=== PATIENT | male | born 1940 | race Caucasian/White ===

== ENCOUNTER 2016-10-19 09:00 | Outpatient (CLI) | payer MEDICARE, OTHER | END 2016-10-19 09:01 | disposition home or self-care (01) | DX: D48.5 Neoplasm of uncertain behavior of skin (principal); E78.5 Hyperlipidemia, unspecified ==

== ENCOUNTER 2017-11-22 08:00 | Outpatient (CLI) | payer MEDICARE, OTHER ==
[2017-11-22 12:53] LABS: BASOPHILS % (AUTO) 0.4 %; EOSINOPHILS # (AUTO) 0.1 10^3/uL (0.0-0.7); EOSINOPHILS % (AUTO) 0.7 %; HGB - HEMOGLOBIN 14.4 g/dL (14.0-18.0); LYMPHOCYTES # (AUTO) 1.2 10^3/uL (1.5-3.5); MEAN CORPUSCULAR HEMOGLOBIN 29.7 pg (27.0-31.0); MEAN CORPUSCULAR HGB CONC 34.5 g/dL (32.0-36.0); MEAN CORPUSCULAR VOLUME 86.2 fL (80.0-94.0); MONOCYTES # (AUTO) 0.6 10^3/uL (0.0-1.0); MONOCYTES % (AUTO) 8.5 %; NEUTROPHILS # (AUTO) 5.4 10^3/uL (1.5-6.6); NEUTROPHILS % (AUTO) 73.4 %; PLT - PLATELET COUNT 224 10^3/uL (130-450); RED BLOOD COUNT 4.84 10^6/uL (4.70-6.10); RED CELL DISTRIBUTION WIDTH 13.1 % (12.0-15.0); WHITE BLOOD COUNT 7.3 x10^3/uL (4.8-10.8)
[2017-11-22 13:19] LABS: ALBUMIN 4.3 g/dL (3.2-5.5); ALBUMIN/GLOBULIN RATIO 1.4 (1.0-2.2); ALKALINE PHOSPHATASE 53 IU/L (42-121); ALT ALANINE AMINOTRANSFERASE 23 IU/L (10-60); AST ASPARTATE AMINOTRANSFERASE 26 IU/L (10-42); BILIRUBIN,TOTAL 0.7 mg/dL (0.2-1.0); BUN - BLOOD UREA NITROGEN 22 mg/dL (6-20); CARBON DIOXIDE - CO2 26 mmol/L (21-32); CHLORIDE 104 mmol/L (101-111); CHOL/HDL RATIO 3.5 (<5.0); CHOLESTEROL 199 mg/dL; CREATININE 0.8 mg/dL (0.6-1.2); GFR - MDRD 94 (>89); GLUCOSE 111 mg/dL (70-100); HDL CHOLESTEROL 57 mg/dL; LDL CHOLESTEROL,CALCULATED 103 mg/dL; LDL/HDL RATIO 1.8 (<3.6); SODIUM 135 mmol/L (135-145); TOTAL PROTEIN 7.3 g/dL (6.7-8.2); VLDL CHOLESTEROL 39 mg/dL
== END 2017-11-22 08:01 | disposition home or self-care (01) ==
LOC: LAB.WCP 08:00
PROVIDERS: ATTEND Family Medicine
DX: I10 Essential (primary) hypertension (principal); E78.5 Hyperlipidemia, unspecified
CPT/HCPCS: 36415; 80053; 80061; 83721; 85025

== ENCOUNTER 2018-12-05 08:00 | Outpatient (CLI) | payer MEDICARE, OTHER ==
[2018-12-05 13:01] LABS: BASOPHILS % (AUTO) 0.7 %; EOSINOPHILS # (AUTO) 0.1 10^3/uL (0.0-0.7); EOSINOPHILS % (AUTO) 0.9 %; HGB - HEMOGLOBIN 14.3 g/dL (14.0-18.0); LYMPHOCYTES # (AUTO) 1.2 10^3/uL (1.5-3.5); LYMPHOCYTES % (AUTO) 19.4 %; MEAN CORPUSCULAR HEMOGLOBIN 29.4 pg (27.0-31.0); MEAN CORPUSCULAR HGB CONC 34.1 g/dL (32.0-36.0); MEAN CORPUSCULAR VOLUME 86.2 fL (80.0-94.0); MEAN PLATELET VOLUME 7.9 fL (7.4-11.4); MONOCYTES # (AUTO) 0.5 10^3/uL (0.0-1.0); MONOCYTES % (AUTO) 8.7 %; NEUTROPHILS # (AUTO) 4.4 10^3/uL (1.5-6.6); NEUTROPHILS % (AUTO) 70.3 %; PLT - PLATELET COUNT 260 10^3/uL (130-450); RED BLOOD COUNT 4.85 10^6/uL (4.70-6.10); WHITE BLOOD COUNT 6.3 x10^3/uL (4.8-10.8)
[2018-12-05 13:28] LABS: ALBUMIN 4.2 g/dL (3.2-5.5); ALBUMIN/GLOBULIN RATIO 1.6 (1.0-2.2); ALKALINE PHOSPHATASE 59 IU/L (42-121); ALT ALANINE AMINOTRANSFERASE 21 IU/L (10-60); AST ASPARTATE AMINOTRANSFERASE 25 IU/L (10-42); BUN - BLOOD UREA NITROGEN 18 mg/dL (6-20); CALCIUM 9.7 mg/dL (8.5-10.3); CARBON DIOXIDE - CO2 24 mmol/L (21-32); CHLORIDE 103 mmol/L (101-111); CHOL/HDL RATIO 3.4 (<5.0); CHOLESTEROL 182 mg/dL; CREATININE 0.8 mg/dL (0.6-1.2); GFR - MDRD 93 (>89); GLUCOSE 110 mg/dL (70-100); HDL CHOLESTEROL 54 mg/dL; LDL CHOLESTEROL,CALCULATED 112 mg/dL; LDL/HDL RATIO 2.1 (<3.6); SODIUM 135 mmol/L (135-145); TOTAL PROTEIN 6.9 g/dL (6.7-8.2); VLDL CHOLESTEROL 16 mg/dL
== END 2018-12-05 23:59 | disposition home or self-care (01) ==
LOC: LAB.WCP 08:00
PROVIDERS: ATTEND Family Medicine
DX: N52.9 Male erectile dysfunction, unspecified (principal); I10 Essential (primary) hypertension; D12.6 Benign neoplasm of colon, unspecified; E78.5 Hyperlipidemia, unspecified; N40.1 Benign prostatic hyperplasia with lower urinary tract symptoms
CPT/HCPCS: 36415; 80053; 80061; 83721; 84443; 85025

== ENCOUNTER 2019-07-16 08:00 | Outpatient (CLI) | payer MEDICARE, OTHER ==
[2019-07-16 13:00] LABS: BASOPHILS % (AUTO) 0.7 %; EOSINOPHILS # (AUTO) 0.1 10^3/uL (0.0-0.7); EOSINOPHILS % (AUTO) 0.8 %; HGB - HEMOGLOBIN 14.9 g/dL (14.0-18.0); LYMPHOCYTES # (AUTO) 1.3 10^3/uL (1.5-3.5); LYMPHOCYTES % (AUTO) 21.2 %; MEAN CORPUSCULAR HEMOGLOBIN 29.6 pg (27.0-31.0); MEAN CORPUSCULAR HGB CONC 32.9 g/dL (32.0-36.0); MEAN CORPUSCULAR VOLUME 90.1 fL (80.0-94.0); MEAN PLATELET VOLUME 9.9 fL (7.4-11.4); MONOCYTES # (AUTO) 0.6 10^3/uL (0.0-1.0); MONOCYTES % (AUTO) 9.8 %; NEUTROPHILS % (AUTO) 67.2 %; PLT - PLATELET COUNT 226 10^3/uL (130-450); RED BLOOD COUNT 5.03 10^6/uL (4.70-6.10); RED CELL DISTRIBUTION WIDTH 12.5 % (12.0-15.0); WHITE BLOOD COUNT 5.9 x10^3/uL (4.8-10.8)
[2019-07-16 13:25] LABS: ALBUMIN 4.6 g/dL (3.2-5.5); ALBUMIN/GLOBULIN RATIO 1.6 (1.0-2.2); BILIRUBIN,TOTAL 0.7 mg/dL (0.2-1.0); CALCIUM 10.1 mg/dL (8.5-10.3); CREATININE 0.9 mg/dL (0.6-1.2); TOTAL PROTEIN 7.4 g/dL (6.7-8.2)
== END 2019-07-16 23:59 | disposition home or self-care (01) ==
LOC: LAB.WCP 08:00
PROVIDERS: ATTEND Family Medicine
DX: R55 Syncope and collapse (principal)
CPT/HCPCS: 36415; 80053; 84443; 85025

== ENCOUNTER 2020-07-27 11:08 | Outpatient (CLI) | payer MEDICARE, OTHER ==
[2020-07-27 18:12] LABS: BASOPHILS % (AUTO) 0.6 %; EOSINOPHILS % (AUTO) 0.8 %; HGB - HEMOGLOBIN 15.2 g/dL (14.0-18.0); LYMPHOCYTES # (AUTO) 1.2 10^3/uL (1.5-3.5); LYMPHOCYTES % (AUTO) 21.8 %; MEAN CORPUSCULAR HEMOGLOBIN 29.6 pg (27.0-31.0); MEAN CORPUSCULAR HGB CONC 32.8 g/dL (32.0-36.0); MEAN CORPUSCULAR VOLUME 90.3 fL (80.0-94.0); MEAN PLATELET VOLUME 9.7 fL (7.4-11.4); MONOCYTES # (AUTO) 0.5 10^3/uL (0.0-1.0); MONOCYTES % (AUTO) 8.4 %; NEUTROPHILS # (AUTO) 3.6 10^3/uL (1.5-6.6); PLT - PLATELET COUNT 242 10^3/uL (130-450); RED BLOOD COUNT 5.14 10^6/uL (4.70-6.10); RED CELL DISTRIBUTION WIDTH 12.4 % (12.0-15.0); WHITE BLOOD COUNT 5.3 x10^3/uL (4.8-10.8)
[2020-07-27 18:38] LABS: ALBUMIN 4.6 g/dL (3.2-5.5); ALBUMIN/GLOBULIN RATIO 1.8 (1.0-2.2); BILIRUBIN,TOTAL 0.9 mg/dL (0.2-1.0); CALCIUM 10.6 mg/dL (8.5-10.3); CREATININE 0.9 mg/dL (0.6-1.2); TOTAL PROTEIN 7.1 g/dL (6.7-8.2)
[2020-07-27 19:04] LABS: CHOL/HDL RATIO 4.6 (<5.0); CHOLESTEROL 224 mg/dL; HDL CHOLESTEROL 49 mg/dL; LDL CHOLESTEROL,CALCULATED 135 mg/dL; LDL/HDL RATIO 2.8 (<3.6); VLDL CHOLESTEROL 40 mg/dL
== END 2020-07-27 23:59 | disposition home or self-care (01) ==
LOC: LAB.WCP 11:08
PROVIDERS: ATTEND Family Medicine
DX: I10 Essential (primary) hypertension (principal); K92.2 Gastrointestinal hemorrhage, unspecified; D64.9 Anemia, unspecified; E78.5 Hyperlipidemia, unspecified; R11.0 Nausea
CPT/HCPCS: 36415; 80053; 80061; 83721; 84443; 85025

== ENCOUNTER 2020-12-27 08:00 | Outpatient (CLI) | payer MEDICARE, OTHER ==
[2020-12-27 12:36] LABS: CHOL/HDL RATIO 3.5 (<5.0); CHOLESTEROL 198 mg/dL; HDL CHOLESTEROL 57 mg/dL; LDL CHOLESTEROL,CALCULATED 115 mg/dL; TRIGLYCERIDES 128 mg/dL; VLDL CHOLESTEROL 26 mg/dL
== END 2020-12-27 23:59 | disposition home or self-care (01) ==
LOC: LAB.WCP 08:00
PROVIDERS: ATTEND Internal Medicine
DX: E78.5 Hyperlipidemia, unspecified (principal)
CPT/HCPCS: 36415; 80061; 83721

== ENCOUNTER 2021-08-30 10:43 | Outpatient (CLI) | payer MEDICARE, OTHER ==
--- NOTE | 2021-08-30 16:16 | XRAY Report ---
PROCEDURE: Thoracic Spine 3 View INDICATIONS: THORACIC BACK PX TECHNIQUE: 3 views of the thoracic spine were acquired. COMPARISON: None. FINDINGS: Bones: There is leftward curvature of the thoracic spine with a Mendez angle 10 degrees. Multilevel deg enerative changes with anterior osteophytes are seen. No focal disc space narrowing. No vertebral bod y height loss. No fractures or dislocations. No suspicious bony lesions. 12 pairs of ribs are noted , and appear intact where visualized. Soft tissues: No paravertebral stripe thickening. IMPRESSION: 1. Leftward curvature of the thoracic spine with a Mendez angle of 10 degrees. 2. Multilevel degenerative changes of the thoracic spine. Reviewed by: Tan Lyon on 08/30/2021 4:14 PM PST Approved by: Tan Lyon on 08/30/2021 4:14 PM [facility] Station ID: [id number]
== END 2021-08-30 10:44 | disposition home or self-care (01) ==
LOC: DI.N 10:43
PROVIDERS: ATTEND Nurse Practitioner
DX: M47.814 Spondylosis without myelopathy or radiculopathy, thoracic region (principal)

== ENCOUNTER 2021-10-19 12:26 | Outpatient (CLI) | payer MEDICARE, OTHER ==
--- NOTE | 2021-10-19 14:53 | XRAY Report ---
PROCEDURE: Knee 4 View BILAT INDICATIONS: KNEE JOINT PAIN, BILAT TECHNIQUE: 3 views of the each knee(s) were acquired. COMPARISON: None. FINDINGS: Bones: No fractures or dislocations. No suspicious bony lesions. Mild joint space narrowing in the medial femorotibial compartments bilaterally. There is bilateral periarticular osteophyte formation. Soft tissues: No joint effusion. Vascular calcifications consistent with atherosclerosis. IMPRESSION: Mild osteoarthritis bilaterally. Reviewed by: Alice Minor MD on 10/19/2021 2:52 PM PST Approved by: Alice Minor MD on 10/19/2021 2:52 PM PST Station ID: [id number]
--- NOTE | 2021-10-19 14:58 | XRAY Report ---
PROCEDURE: Wrist 3 View LT INDICATIONS: WRIST JOINT PAIN, LEFT TECHNIQUE: 3 views of the wrist were acquired. COMPARISON: None. FINDINGS: Bones: An osseous density in the dorsal aspect of the wrist is seen, suspicious for triquetral fract ure. No dislocations. No suspicious bony lesions. Moderate radiocarpal joint degeneration. Soft tissues: No suspicious soft tissue calcifications. IMPRESSION: 1. Questionable triquetral fracture. If clinically indicated, CT or MRI may be helpful for further ev aluation. 2. Moderate degenerative joint disease. Reviewed by: Alice Minor MD on 10/19/2021 2:57 PM PST Approved by: Alice Minor MD on 10/19/2021 2:57 PM [facility] Station ID: [id number]
== END 2021-10-19 12:27 | disposition home or self-care (01) ==
LOC: DI.N 12:26
PROVIDERS: ATTEND Nurse Practitioner
DX: M19.032 Primary osteoarthritis, left wrist (principal); R93.6 Abnormal findings on diagnostic imaging of limbs; M17.0 Bilateral primary osteoarthritis of knee

== ENCOUNTER 2021-10-31 12:47 | Outpatient (CLI) | payer MEDICARE, OTHER ==
--- NOTE | 2021-10-31 19:06 | MRI Report ---
PROCEDURE: Wrist LT W/O INDICATIONS: LEFT WRIST JOINT PAIN TECHNIQUE: Noncontrast coronal proton density fast spin echo and T2 fast spin echo with fat saturation; coronal 3-D gradient echo, axial T1 spin echo and T2 fast spin echo with fat saturation, sagittal T1 spin ech o through the wrist. COMPARISON: None. FINDINGS: BONES: The carpal bones are normally aligned. T2 hyperintense and T1 hypointense foci are seen in th e distal radius, distal ulna, and capitate, which may reflect fibrocystic change. CARTILAGE: Signal heterogeneity and thinning with deficiency of the lunate hyaline cartilage. CARPAL LIGAMENTS: The scapholunate and lunotriquetral ligaments appear intact. In the absence of in tra-articular contrast, the extrinsic carpal ligaments are not well identified. TRIANGULAR FIBROCARTILAGE COMPLEX: Deficiency of the TFCC, likely reflecting long-standing tear. CARPAL TUNNEL: T2 hyperintense/T1 hypointense signal surrounds the flexor compartment tendons, compat ible tenosynovitis. GUYON'S CANAL: The ulnar nerve appears normal. EXTENSOR TENDON COMPARTMENT: Fluid signal surrounds the extensor carpi ulnaris and digitorum, compati ble tenosynovitis. SOFT TISSUES: Joint effusions of the distal radial ulnar, midcarpal, and radiocarpal articulations wi th evidence of synovitis. IMPRESSION: 1.Wrist joint effusion with synovitis as detailed above. 2.Tenosynovitis of the flexor tendons. 3.Extent carpi ulnaris and digitorum tenosynovitis. Reviewed by: Robert Tucker MD on 10/31/2021 7:04 PM PST Approved by: Robert Tucker MD on 10/31/2021 7:04 PM PST Station ID: [id number]
== END 2021-10-31 12:48 | disposition home or self-care (01) ==
LOC: DI 12:47
PROVIDERS: ATTEND Nurse Practitioner
DX: M25.432 Effusion, left wrist (principal); M65.9 Synovitis and tenosynovitis, unspecified

== ENCOUNTER 2022-02-22 09:59 | Emergency (ER) | payer MEDICARE, OTHER ==
--- NOTE | 2022-02-22 10:12 | ED Physician Documentation ---
PD HPI LOWER EXT INJURY - Stated complaint Stated Complaint: R LEG INJ/FALL - Chief complaint Chief Complaint: Trauma Ext - History obtained from History obtained from: Patient - History of Present Illness PD HPI LOW EXT INJURY LOCATION: Hip, Upper leg Type of injury: Fall (stumbled and fell to right side, striking posterolateral thigh/gluteal area. Has continued pain there and has since developed bruising medial thigh.) Where injury occurred: Home Timing - onset: How many weeks ago (08/27) Timing - duration: Weeks (08/27) Timing - details: Abrupt onset, Still present Worsened by: Moving, Palpating Associated symptoms: Swelling, Discolored (bruising purple has developed medial thigh down to knee the past few days, increasing. Not hurting there however.). No: Weakness, Numbness Contributing factors: No: Anticoagulated, Prior ortho surgery Similar symptoms before: Has not had sx before Review of Systems Cardiac: denies: Chest pain / pressure GI: denies: Abdominal Pain Musculoskeletal: denies: Back pain Neurologic: denies: Focal weakness, Numbness PD PAST MEDICAL HISTORY - Past Medical History Cardiovascular: Hypertension, High cholesterol - Past Surgical History Past Surgical History: Yes General: Other (umbilical hernia) HEENT: Tonsil/Adenoidectomy - Present Medications Home Medications: Ambulatory Orders Medication Instructions Recorded Confirmed Simvastatin [Zocor] 40 mg PO DAILY 06/24/14 02/22/22 - Allergies Allergies/Adverse Reactions: Allergies Allergy/AdvReac Type Severity Reaction Status Date / Time No Known Drug Allergies Allergy Verified 02/22/22 10:04 - Social History Does the pt smoke?: No Smoking Status: Never smoker Does the pt drink ETOH?: No Does the pt have substance abuse?: No - Immunizations Immunizations are current?: Yes - POLST Patient has POLST: No PD ED PE NORMAL - Vitals Vital signs reviewed: Yes - General General: Alert and oriented X 3, No acute distress, Well developed/nourished - HEENT HEENT: Atraumatic - Derm Derm: Normal color, Warm and dry - Extremities Extremities: Other (The right greater trochanter area is tenderness without any obvious deformity. He does have some pain with abduction of the leg. There is some local bruising. There is purple ecchymosis on the medial and posterior aspect of the thigh down to the knee. No tenderness in that area.) - Neuro Neuro: Alert and oriented X 3, No motor deficit, No sensory deficit, Normal speech Results - Vitals Vitals: Vital Signs - 24 hr 02/22/22 02/22/22 10:05 11:40 Temperature 36.8 C Heart Rate 65 63 Respiratory 19 14 Rate Blood Pressure 168/73 H 158/85 H O2 Saturation 97 99 Oxygen O2 Source Room air - Rads (name of study) right hip Radiology: Prelim report reviewed (no fractures), See rad report PD MEDICAL DECISION MAKING - ED course Complexity details: reviewed results, considered differential, d/w patient Departure - Departure Disposition: Home, Self Care Clinical Impression: Contusion of muscle Hematoma of right thigh Qualifiers: Encounter type: initial encounter Qualified Code(s): S70.11XA - Contusion of right thigh, initial encounter Condition: Stable Record reviewed to determine appropriate education?: Yes Instructions: ED Hematoma Follow-Up: Edward Lord MD [Primary Care Provider] - Comments: Your x-ray is normal without any signs of fracture. The bruising and distribution of it is indicative of a bruising within the muscle in the upper thigh that tracked down with gravity into the lower thigh and around the knee. This will cause local irritation and discomfort as well. I presume the muscle bruising will heal over 2 to 3 weeks. Activity as tolerated. Continue your Tylenol every 4-6 hours for the next week or so and then as needed. Add in some ibuprofen or naproxen if needed. Discharge Date/Time: 02/22/22 11:46
--- NOTE | 2022-02-22 11:08 | XRAY Report ---
PROCEDURE: Hip w/Pelvis 2-3V RT INDICATIONS: fall with lateral trochanteric pain/bruising TECHNIQUE: AP pelvis with lateral view(s) of the right hip(s). COMPARISON: None. FINDINGS: Bones: No fractures or dislocations. Pelvic ring appears intact. No suspicious bony lesions. Mild degenerative changes of both hips. Soft tissues: The visualized bowel gas pattern is normal. No suspicious soft tissue calcifications. Vascular calcifications are seen in the iliac and femoral vessels. IMPRESSION: No acute abnormality of the pelvis or right hip. Reviewed by: Tan Lyon on 02/22/2022 11:06 AM PDT Approved by: Tan Lyon on 02/22/2022 11:06 AM PDT Station ID: [id number]
[2022-02-22 11:41] VITALS: BP 158/85
== END 2022-02-22 11:46 | disposition home or self-care (01) ==
LOC: ED 09:59
DX: S70.11XA Contusion of right thigh, initial encounter (principal); W01.0XXA Fall on same level from slipping, tripping and stumbling without subsequent striking against object, initial encounter; Y92.009 Unspecified place in unspecified non-institutional (private) residence as the place of occurrence of the external cause; I10 Essential (primary) hypertension
CPT/HCPCS: 99282; 99283

== ENCOUNTER 2022-11-22 10:54 | Outpatient (CLI) | payer MEDICARE, OTHER ==
--- NOTE | 2022-11-22 14:21 | XRAY Report ---
PROCEDURE: Knee 3 View RT INDICATIONS: DJD TECHNIQUE: 3 views of the right knee(s) were acquired. COMPARISON: X-ray knee 10/19/2021 FINDINGS: Bones: No fractures or dislocations. No suspicious bony lesions. Moderate to severe medial and pa tellofemoral as well as moderate lateral compartment narrowing. Periarticular osteophytes are present . No erosions. Soft tissues: No joint effusion. No suspicious soft tissue calcifications. IMPRESSION: Tricompartmental arthritic change as above. No appreciable change compared to prior exam . Reviewed by: Ni Menendez MD on 11/22/2022 2:19 PM PDT Approved by: Ni Menendez MD on 11/22/2022 2:19 PM PDT Station ID: [id number]
== END 2022-11-22 10:55 | disposition home or self-care (01) ==
LOC: DI 10:54
PROVIDERS: ATTEND Internal Medicine
DX: M17.11 Unilateral primary osteoarthritis, right knee (principal)

== ENCOUNTER 2022-12-24 17:10 | Outpatient (CLI) | payer MEDICARE, OTHER ==
--- NOTE | 2022-12-24 11:02 | XRAY Report ---
PROCEDURE: Knee 2 View RT INDICATIONS: RIGHT KNEE PAIN, BILAT AP RIGHT TUNNEL ONLY TECHNIQUE: 2 views of the right knee(s) were acquired. COMPARISON: 11/22/2022 FINDINGS: Bones: No fractures or dislocations. No suspicious bony lesions. Definite osteophytes and possibl e narrowing of joint space. These changes affect the medial tibiofemoral compartment. Similar finding s are seen in the left knee. Soft tissues: Unable to assess for effusion. No lateral view was acquired today. IMPRESSION: Moderate arthrosis. Reviewed by: Horacio Thomas MD on 12/24/2022 11:01 AM PDT Approved by: Horacio Thomas MD on 12/24/2022 11:01 AM PDT Station ID: [id number]
== END 2022-12-24 17:11 | disposition home or self-care (01) ==
LOC: DI.WOS 17:10
PROVIDERS: ATTEND Physician Assistant Surgical
DX: M17.11 Unilateral primary osteoarthritis, right knee (principal)

== ENCOUNTER 2023-04-12 13:33 | Outpatient (CLI) | payer MEDICARE, OTHER ==
[2023-04-12 13:51] LABS: BASOPHILS % (AUTO) 0.2 %; EOSINOPHILS % (AUTO) 0.4 %; HCT - HEMATOCRIT 40.3 % (42.0-52.0); LYMPHOCYTES # (AUTO) 1.1 10^3/uL (1.5-3.5); MEAN CORPUSCULAR HEMOGLOBIN 30.2 pg (27.0-31.0); MEAN CORPUSCULAR HGB CONC 34.7 g/dL (32.0-36.0); MEAN CORPUSCULAR VOLUME 86.9 fL (80.0-94.0); MEAN PLATELET VOLUME 9.1 fL (7.4-11.4); MONOCYTES # (AUTO) 0.6 10^3/uL (0.0-1.0); NEUTROPHILS # (AUTO) 6.4 10^3/uL (1.5-6.6); PLT - PLATELET COUNT 217 10^3/uL (130-450); RED BLOOD COUNT 4.64 10^6/uL (4.70-6.10); WHITE BLOOD COUNT 8.2 x10^3/uL (4.8-10.8)
[2023-04-12 14:06] LABS: ALBUMIN 4.3 g/dL (3.2-5.5); ALBUMIN/GLOBULIN RATIO 1.9 (1.0-2.2); ALKALINE PHOSPHATASE 54 IU/L (42-121); ALT ALANINE AMINOTRANSFERASE 15 IU/L (10-60); AST ASPARTATE AMINOTRANSFERASE 22 IU/L (10-42); BILIRUBIN,TOTAL 0.7 mg/dL (0.2-1.0); BUN - BLOOD UREA NITROGEN 21 mg/dL (6-20); CALCIUM 9.9 mg/dL (8.5-10.3); CARBON DIOXIDE - CO2 26 mmol/L (21-32); CHLORIDE 99 mmol/L (101-111); CHOL/HDL RATIO 3.1 (<5.0); CHOLESTEROL 156 mg/dL; CREATININE 0.8 mg/dL (0.6-1.3); CRP - C-REACTIVE PROTEIN 0.5 mg/dL (<0.5); GFR - MDRD 92 (>89); GLUCOSE 106 mg/dL (74-104); HDL CHOLESTEROL 50 mg/dL; LDL CHOLESTEROL,CALCULATED 79 mg/dL; LDL/HDL RATIO 1.6 (<3.6); POTASSIUM 3.9 mmol/L (3.5-4.5); SODIUM 130 mmol/L (135-145); TOTAL PROTEIN 6.6 g/dL (6.4-8.9); TRIGLYCERIDES 137 mg/dL (48-352); VLDL CHOLESTEROL 27 mg/dL
[2023-04-12 14:21] LABS: THYROID STIMULATING HORMONE 0.87 uIU/mL (0.34-5.60)
[2023-04-12 15:07] LABS: ESTIMATED AVERAGE GLUCOSE 111 mg/dL (70-100); HEMOGLOBIN A1c% 5.5 % (4.27-6.07)
== END 2023-04-12 13:34 | disposition home or self-care (01) ==
LOC: LAB 13:33
PROVIDERS: ATTEND Internal Medicine
DX: E78.5 Hyperlipidemia, unspecified (principal); R73.01 Impaired fasting glucose; I10 Essential (primary) hypertension; M25.50 Pain in unspecified joint; F32.A Depression, unspecified
CPT/HCPCS: 36415; 80053; 80061; 83036; 83721; 84443; 85025; 85651; 86140

== ENCOUNTER 2023-05-30 10:53 | Emergency (ER) | payer MEDICARE, OTHER ==
[2023-05-30 11:18] VITALS: BP 156/79; O2SAT 98
[2023-05-30] MEDS ORDERED: TRANEXAMIC ACID 1,000 MG/10 ML VIAL NAS STA (12:13)
[2023-05-30 12:38] LABS: BASOPHILS % (AUTO) 0.4 %; EOSINOPHILS % (AUTO) 0.3 %; HCT - HEMATOCRIT 42.9 % (42.0-52.0); HGB - HEMOGLOBIN 14.4 g/dL (14.0-18.0); LYMPHOCYTES # (AUTO) 1.2 10^3/uL (1.5-3.5); LYMPHOCYTES % (AUTO) 15.9 %; MEAN CORPUSCULAR HEMOGLOBIN 29.8 pg (27.0-31.0); MEAN CORPUSCULAR HGB CONC 33.6 g/dL (32.0-36.0); MEAN CORPUSCULAR VOLUME 88.8 fL (80.0-94.0); MEAN PLATELET VOLUME 9.6 fL (7.4-11.4); MONOCYTES # (AUTO) 0.5 10^3/uL (0.0-1.0); NEUTROPHILS # (AUTO) 5.5 10^3/uL (1.5-6.6); NEUTROPHILS % (AUTO) 76.1 %; PLT - PLATELET COUNT 212 10^3/uL (130-450); RED BLOOD COUNT 4.83 10^6/uL (4.70-6.10); RED CELL DISTRIBUTION WIDTH 12.3 % (12.0-15.0); WHITE BLOOD COUNT 7.2 x10^3/uL (4.8-10.8)
[2023-05-30 12:48] LABS: ALBUMIN 4.4 g/dL (3.2-5.5); ALBUMIN/GLOBULIN RATIO 1.8 (1.0-2.2); BILIRUBIN,TOTAL 0.5 mg/dL (0.2-1.0); CALCIUM 10.3 mg/dL (8.5-10.3); CREATININE 0.7 mg/dL (0.6-1.3); POTASSIUM 4.2 mmol/L (3.5-4.5); TOTAL PROTEIN 6.9 g/dL (6.4-8.9)
[2023-05-30 12:49] LABS: PARTIAL THROMBOPLASTIN TIME 30.9 secs (24.9-33.3)
[2023-05-30 12:53] LABS: PT - PROTHROMBIN TIME 11.1 secs (9.9-12.6)
--- NOTE | 2023-05-30 12:58 | ED Physician Documentation ---
History of Present Illness - Stated complaint Stated Complaint: BLOODY NOSE - Chief complaint Chief Complaint: Heent - History obtained from History obtained from: Patient - History of Present Illness Pain level max: 0 Pain level now: 0 - Additonal information Additional information: 83-year-old male presents to the emergency department complaining of a right- sided epistaxis event that started last night. He put a nasal tampon in place and it has since stopped bleeding. He states he has had several of these events over the past 6 months. Has not seen his doctor for this. Has not seen ENT. No history of coagulopathy. No history of thrombocytopenia. No recent illnesses. Not on blood thinners. No trauma. Better with pressure, nothing makes it worse. Review of Systems Constitutional: denies: Fever, Chills Respiratory: denies: Cough GI: denies: Nausea, Vomiting, Diarrhea Skin: denies: Rash Neurologic: denies: Headache PD PAST MEDICAL HISTORY - Past Medical History Past Medical History: Yes Cardiovascular: Hypertension, High cholesterol - Past Surgical History Past Surgical History: Yes General: Other HEENT: Tonsil/Adenoidectomy - Present Medications Home Medications: Ambulatory Orders Medication Instructions Recorded Confirmed Simvastatin [Zocor] 40 mg PO DAILY 06/24/14 05/30/23 Tamsulosin [Flomax] 1 cap PO DAILY 05/30/23 05/30/23 - Allergies Allergies/Adverse Reactions: Allergies Allergy/AdvReac Type Severity Reaction Status Date / Time No Known Drug Allergies Allergy Verified 05/30/23 11:09 - Social History Does the pt smoke?: No Smoking Status: Never smoker Does the pt drink ETOH?: No Does the pt have substance abuse?: No - Immunizations Immunizations are current?: Yes - POLST Patient has POLST: No PD ED PE NORMAL - Vitals Vital signs reviewed: Yes - General General: Alert and oriented X 3, No acute distress - HEENT HEENT: Moist mucous membranes, Other (R nare - mild intranasal irritation. one small site with oozing blood. ) - Neck Neck: Supple, no meningeal sign - Cardiac Cardiac: RRR - Respiratory Respiratory: No respiratory distress, Clear bilaterally - Derm Derm: Warm and dry - Neuro Neuro: Alert and oriented X 3 - Psych Psych: Normal mood, Normal affect Results - Vitals Vitals: Vital Signs - 24 hr 05/30/23 11:04 Temperature 36.7 C Heart Rate 60 Respiratory 16 Rate Blood Pressure 156/79 H O2 Saturation 98 Oxygen O2 Source Room air - Labs Labs: Laboratory Tests 05/30/23 05/30/23 05/30/23 12:23 12:23 12:23 WBC 7.2 RBC 4.83 Hgb 14.4 Hct 42.9 MCV 88.8 MCH 29.8 MCHC 33.6 RDW 12.3 Plt Count 212 MPV 9.6 Neut # (Auto) 5.5 Lymph # (Auto) 1.2 L Ada # (Auto) 0.5 Eos # (Auto) 0.0 Baso # (Auto) 0.0 Absolute Nucleated RBC 0.00 Nucleated RBC % 0.0 PT 11.1 INR 1.0 APTT 30.9 Sodium 135 Potassium 4.2 Chloride 102 Carbon Dioxide 27 Anion Gap 6.0 BUN 18 Creatinine 0.7 Estimated GFR (MDRD) 108 Glucose 109 H Calcium 10.3 Total Bilirubin 0.5 AST 18 ALT 16 Alkaline Phosphatase 61 Total Protein 6.9 Albumin 4.4 Globulin 2.5 Albumin/Globulin Ratio 1.8 PD Medical Decision Making - ED course Complexity details: reviewed results, re-evaluated patient, considered differential, d/w patient ED course: Patient with a small amount of oozing blood in the right nare. Intranasal TXA applied. Tolerated well. No further bleeding. No acute findings on laboratory testing. No thrombocytopenia, coagulopathy or liver disease. We will have the patient follow-up with his PCP and likely a referral to ENT for his continued nosebleeds. Patient counseled regarding signs and symptoms for which I believe and urgent re-evaluation would be necessary. Patient with good understanding of and agreement to plan and is comfortable going home at this time This document was made in part using voice recognition software. While efforts are made to proofread this document, sound alike and grammatical errors may occur. Departure - Departure Disposition: 01 Home, Self Care Clinical Impression: Epistaxis Condition: Good Instructions: ED Nosebleed Follow-Up: Benito Rankin MD [Primary Care Provider] - [facility] [Provider Group] Comments: Your laboratory studies do not show any acute abnormalities today. Your coagulation studies, liver tests and complete blood count including platelets are normal. You can use a small amount of saline inside the nose which will help to moisturize the area. You were given tranexamic acid intranasally today. This will help to stabilize any clots. Please do not blow your nose today or stick anything in your nose. Please return if you worsen. Forms: PCP List Discharge Date/Time: 05/30/23 13:03
== END 2023-05-30 13:03 | disposition home or self-care (01) ==
LOC: ED 10:53
DX: R04.0 Epistaxis (principal); I10 Essential (primary) hypertension
CPT/HCPCS: 36415; 80053; 85025; 85610; 85730; 99283

== ENCOUNTER 2023-08-08 14:37 | Outpatient (CLI) | payer MEDICARE, OTHER ==
[2023-08-08] MEDS ORDERED: GADOTERATE MEGLUMINE 10 MMOL/20 ML VIAL ONE (14:52)
[2023-08-08 15:18] LABS: BASOPHILS # (AUTO) 0.1 10^3/uL (0.0-0.1); BASOPHILS % (AUTO) 0.6 %; EOSINOPHILS % (AUTO) 0.2 %; HCT - HEMATOCRIT 41.6 % (42.0-52.0); HGB - HEMOGLOBIN 14.1 g/dL (14.0-18.0); LYMPHOCYTES # (AUTO) 1.4 10^3/uL (1.5-3.5); LYMPHOCYTES % (AUTO) 16.3 %; MEAN CORPUSCULAR HEMOGLOBIN 29.6 pg (27.0-31.0); MEAN CORPUSCULAR HGB CONC 33.9 g/dL (32.0-36.0); MEAN CORPUSCULAR VOLUME 87.4 fL (80.0-94.0); MEAN PLATELET VOLUME 9.5 fL (7.4-11.4); MONOCYTES # (AUTO) 0.6 10^3/uL (0.0-1.0); NEUTROPHILS # (AUTO) 6.4 10^3/uL (1.5-6.6); NEUTROPHILS % (AUTO) 75.7 %; PLT - PLATELET COUNT 224 10^3/uL (130-450); RED BLOOD COUNT 4.76 10^6/uL (4.70-6.10); WHITE BLOOD COUNT 8.5 x10^3/uL (4.8-10.8)
[2023-08-08 15:49] LABS: ALBUMIN 4.4 g/dL (3.2-5.5); ALBUMIN/GLOBULIN RATIO 1.9 (1.0-2.2); BILIRUBIN,TOTAL 0.4 mg/dL (0.2-1.0); CALCIUM 10.5 mg/dL (8.5-10.3); CREATININE 0.9 mg/dL (0.6-1.3); CRP HIGH SENSITIVITY 0.61 mg/L; POTASSIUM 4.1 mmol/L (3.5-4.5); TOTAL PROTEIN 6.7 g/dL (6.4-8.9)
[2023-08-08] MEDS ORDERED: GADOTERATE MEGLUMINE 10 MMOL/20 ML VIAL IVP ONE (16:47)
--- NOTE | 2023-08-09 15:16 | MRI Report ---
PROCEDURE: MRI orbits with and without contrast INDICATIONS: Visual disturbances TECHNIQUE: Multiplanar multisequence MRI images of the brain with dedicated imaging of the orbits wa s obtained with and without intravenous contrast COMPARISON: None FINDINGS: Orbits: Globes are symmetrical. The optic nerves are normal in size without abnormal signal or enha ncement. No retrobulbar masses or fat abnormalities. The extra-ocular muscles are normal and symmet gian in appearance. Lacrimal glands are normal. Optic chiasm is normal. Periorbital soft tissues ap pear unremarkable. CSF spaces: Ventricles are normal in size and shape. Basal cisterns are patent. No extra-axial flu id collections. Brain: No intracranial bleeds or mass effects. No abnormal intracranial enhancement. Conley-white ma tter interface is intact. Diffusion weighted images demonstrate no acute infarct. Unremarkable sella r and suprasellar region. Brainstem appears normal. Normal intravascular flow voids are present. 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 Skull and face: Calvarial marrow is normal in signal. Bilateral intraocular lens replacements noted . Sinuses: Left maxillary sinus mucosal thickening and 2 cm retention cyst. No remodeling. 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 Moderate atrophy and confluent white matter chronic ischemic change without acute infarct, hemorrhage or mass lesion Bilateral intraocular lens replacements. Otherwise unremarkable MRI of the orbits. Reviewed by: Jose Fox MD on 08/09/2023 2:15 PM [facility] Approved by: Jose Fox MD on 08/09/2023 2:15 PM [facility] Station ID: [id number]
== END 2023-08-08 14:38 | disposition home or self-care (01) ==
LOC: LAB 14:37
PROVIDERS: ATTEND Ophthalmology
DX: H53.40 Unspecified visual field defects (principal); H53.8 Other visual disturbances; H40.013 Open angle with borderline findings, low risk, bilateral; I10 Essential (primary) hypertension; G93.0 Cerebral cysts; Q04.3 Other reduction deformities of brain; G31.89 Other specified degenerative diseases of nervous system; I67.82 Cerebral ischemia; Z96.1 Presence of intraocular lens
CPT/HCPCS: 36415; 70543; 80053; 85025; 85651; 86141; A9575

== ENCOUNTER 2024-01-06 16:07 | Outpatient (CLI) | payer MEDICARE, OTHER ==
[2024-01-06 17:08] LABS: THYROID STIMULATING HORMONE 1.65 uIU/mL (0.34-5.60)
== END 2024-01-06 16:08 | disposition home or self-care (01) ==
LOC: LAB 16:07
PROVIDERS: ATTEND Psychiatry & Neurology Neurology
DX: R41.3 Other amnesia (principal); E55.9 Vitamin D deficiency, unspecified
CPT/HCPCS: 36415; 82306; 82607; 82746; 84443

== ENCOUNTER 2024-03-20 13:50 | Emergency (ER) | payer MEDICARE, OTHER ==
[2024-03-20 14:07] VITALS: BP 127/67; O2SAT 98
== END 2024-03-20 15:34 | disposition left against medical advice (07) ==
LOC: ED 13:50
DX: Z53.21 Procedure and treatment not carried out due to patient leaving prior to being seen by health care provider (principal)

== ENCOUNTER 2024-04-30 15:21 | Outpatient (CLI) | payer MEDICARE, OTHER ==
[2024-04-30 15:36] LABS: BASOPHILS % (AUTO) 0.5 %; EOSINOPHILS % (AUTO) 0.3 %; HCT - HEMATOCRIT 38.1 % (42.0-52.0); HGB - HEMOGLOBIN 13.1 g/dL (14.0-18.0); LYMPHOCYTES # (AUTO) 1.4 10^3/uL (1.5-3.5); LYMPHOCYTES % (AUTO) 17.3 %; MEAN CORPUSCULAR HGB CONC 34.4 g/dL (32.0-36.0); MEAN CORPUSCULAR VOLUME 87.2 fL (80.0-94.0); MEAN PLATELET VOLUME 9.2 fL (7.4-11.4); MONOCYTES # (AUTO) 0.6 10^3/uL (0.0-1.0); MONOCYTES % (AUTO) 7.8 %; NEUTROPHILS # (AUTO) 5.8 10^3/uL (1.5-6.6); NEUTROPHILS % (AUTO) 73.8 %; PLT - PLATELET COUNT 202 10^3/uL (130-450); RED BLOOD COUNT 4.37 10^6/uL (4.70-6.10); RED CELL DISTRIBUTION WIDTH 12.3 % (12.0-15.0); WHITE BLOOD COUNT 7.9 x10^3/uL (4.8-10.8)
[2024-04-30 15:48] LABS: ALBUMIN 4.1 g/dL (3.2-5.5); ALBUMIN/GLOBULIN RATIO 1.8 (1.0-2.2); ALKALINE PHOSPHATASE 65 IU/L (42-121); ALT ALANINE AMINOTRANSFERASE 17 IU/L (10-60); AST ASPARTATE AMINOTRANSFERASE 20 IU/L (10-42); BILIRUBIN,TOTAL 0.4 mg/dL (0.2-1.0); BUN - BLOOD UREA NITROGEN 25 mg/dL (6-20); CALCIUM 10.6 mg/dL (8.5-10.3); CARBON DIOXIDE - CO2 29 mmol/L (21-32); CHLORIDE 98 mmol/L (101-111); CHOLESTEROL 135 mg/dL; GFR - MDRD 71 (>89); GLUCOSE 108 mg/dL (74-104); HDL CHOLESTEROL 45 mg/dL; LDL CHOLESTEROL,CALCULATED 62 mg/dL; LDL/HDL RATIO 1.4 (<3.6); POTASSIUM 4.1 mmol/L (3.5-4.5); SODIUM 132 mmol/L (135-145); TOTAL PROTEIN 6.4 g/dL (6.4-8.9); TRIGLYCERIDES 140 mg/dL; VLDL CHOLESTEROL 28 mg/dL
--- NOTE | 2024-05-01 14:38 | XRAY Report ---
PROCEDURE: Lumbar Spine 2-3V INDICATIONS: LUMBAR BACK PAIN TECHNIQUE: 3 views of the lumbar spine were acquired. COMPARISON: None. FINDINGS: Surgical change: None. Bones: 5 gbe-[id number]-hotxspt vertebrae are present. Rightward scoliotic curvature is present with apex a t L2-3. There is multilevel moderate to severe degenerative disc space narrowing most prominent at L2 -3 and L4-5. Multilevel foraminal narrowing is present most severe at L3-4, L4-5 and L5-S1. Multileve l anterior osteophytes are present. No vertebral body compression fractures. No suspicious bony lesi ons. Soft tissues: Overlying bowel gas pattern is normal. No suspicious soft tissue calcifications. IMPRESSION: Scoliotic curvature with multilevel degenerative disc and foraminal narrowing. No visualized acute fracture or dislocation. However, occult injury cannot be excluded. Recommend long rt interval imaging follow-up in 7-10 days as clinically indicated for additional evaluation. Reviewed by: Ni Menendez MD on 05/01/2024 2:37 PM PDT Approved by: Ni Menendez MD on 05/01/2024 2:37 PM PDT Station ID: [id number]
--- NOTE | 2024-05-01 14:39 | XRAY Report ---
PROCEDURE: Hips w/Pelvis 2-3V BL INDICATIONS: HIP PAIN TECHNIQUE: 3 view(s) of the hip were acquired. COMPARISON: None. FINDINGS: Bones: No fractures or dislocations. No suspicious bony lesions. The visualized pelvic ring appear s intact. Soft tissues: No suspicious soft tissue calcifications or masses. IMPRESSION: No visualized acute fracture or dislocation. However, occult injury cannot be excluded. Recommend long rt interval imaging follow-up in 7-10 days as clinically indicated for additional evaluation. Reviewed by: Ni Menendez MD on 05/01/2024 2:38 PM PDT Approved by: Ni Menendez MD on 05/01/2024 2:38 PM PDT Station ID: [id number]
== END 2024-04-30 15:22 | disposition home or self-care (01) ==
LOC: LAB 15:21
PROVIDERS: ATTEND Internal Medicine
DX: I10 Essential (primary) hypertension (principal); E78.5 Hyperlipidemia, unspecified; F32.A Depression, unspecified; M25.559 Pain in unspecified hip; M47.816 Spondylosis without myelopathy or radiculopathy, lumbar region; M48.061 Spinal stenosis, lumbar region without neurogenic claudication
CPT/HCPCS: 36415; 80053; 80061; 83721; 84443; 85025

== ENCOUNTER 2024-05-12 13:10 | Outpatient (CLI) | payer MEDICARE, OTHER ==
--- NOTE | 2024-05-12 15:24 | CT Report ---
PROCEDURE: Head WO INDICATIONS: LOC TECHNIQUE: Noncontrast 4.5 mm thick angled axial sections acquired from the foramen magnum to the vertex. For r adiation dose reduction, the following was used: automated exposure control, adjustment of mA and/or kV according to patient size. COMPARISON: MRI orbits 08/08/2023. FINDINGS: Image quality: Excellent. The ventricular system and cortical sulci demonstrate atrophy, consistent for patient's stated age. There are areas of hypodensity in the periventricular and subcortical white matter. There is no acut e intra or extra-axial fluid collection. No acute hemorrhage or midline shift. Presumed arachnoid cy sts are present in the anterior left temporal lobe as well as posterior fossa, unchanged. Brainstem i s unremarkable. Globes are symmetrical. Sinuses are aerated. Osseous structures are intact. IMPRESSION: 1. No acute intracranial process. 2. Moderate atrophy and chronic microvascular ischemic changes. Reviewed by: Ni Menendez MD on 05/12/2024 3:23 PM PDT Approved by: Ni Menendez MD on 05/12/2024 3:23 PM PDT Station ID: [id number]
== END 2024-05-12 13:11 | disposition home or self-care (01) ==
LOC: DI 13:10
PROVIDERS: ATTEND Internal Medicine
DX: R40.20 Unspecified coma (principal); I67.82 Cerebral ischemia

== ENCOUNTER 2024-06-07 10:57 | Observation (INO) ==
--- NOTE | 2024-06-07 11:05 | ED Physician Documentation ---
PD HPI FOCAL NEURO Stated complaint Stated Complaint: CVA Chief complaint Chief Complaint: Neuro History obtained from History obtained from: Patient, Family and EMS History of Present Illness Timing - onset: How many hours ago (1) and Today Timing - duration: Hours (1) Timing - details: Abrupt onset and Now resolved (with just faint weakness of left face and arm. ) Severity of deficit: Severe Weakness: Face, Arm, Leg and Left Numbness: Face, Arm, Leg and Left Associated symptoms: Back pain (has had lower back pain for several months, and is getting PT. ); No Headache, Nausea / vomiting or Head injury Contributing factors: negative Anticoagulated or Atrial fibrillation Baseline status: positive A&OX3, ambulatory, indep Similar symptoms before: Has not had sx before Review of Systems Constitutional Denies: Fatigue Ears, nose, mouth, and throat Denies: Vertigo Cardiovascular Denies: Irregular heart rate or shortness of breath with exertion Respiratory Denies: Shortness of breath Neurological Denies: Headache or Vertigo Endocrine Denies: Fatigue Meds/Allgy Home Medications Ambulatory Orders Medication Instructions Recorded Confirmed tamsulosin 0.4 mg capsule 1 cap PO DAILY 05/30/23 06/07/24 atorvastatin 40 mg tablet 40 mg PO DAILY 06/07/24 06/07/24 escitalopram oxalate 5 mg tablet 5 mg PO DAILY 06/07/24 06/07/24 gabapentin 300 mg capsule 300 mg PO BID 06/07/24 06/07/24 hydrochlorothiazide 25 mg tablet 25 mg PO DAILY 06/07/24 06/07/24 losartan 100 mg tablet 100 mg PO DAILY 06/07/24 06/07/24 sildenafil 100 mg tablet 100 mg PO Q24H PRN erectile 06/07/24 06/07/24 dysfunction Allergies Allergies Allergy/AdvReac Type Severity Reaction Status Date / Time No Known Drug Allergies Allergy Verified 06/07/24 11:41 PFSH Social History Social History Smoking Status: Former smoker If you are a former smoker, when did you quit? (Date/Year): 1971 Do you dip or chew tobacco?: No Do you vape?: No Smoking Status Details: quit smoking in 1971 Living arrangement: At home Relationship: Level: Assisted Do you feel safe in your home environment?: Yes Suffered physical, verbal, emotional, or financial abuse?: No History of Abuse: No Substance Use: denies use POLST Patient has POLST: No Exam Constitutional normal general appearance, average body habitus and alert HENMT normocephalic and head/scalp atraumatic Eyes PERRL and EOMs intact bilaterally Respiratory breath sounds equal bilaterally, normal respiratory effort and clear to auscultation bilaterally Cardiovascular normal heart rate noted and regular rhythm noted Gastrointestinal abdomen soft to palpation and nontender to palpation Psychiatry mental status grossly normal and oriented x3 NIHSS Level of Consciousness Level of consciousness: (0) Alert, Keenly responsive LOC Questions: (0) Answers both Q's correct LOC Commands: (0) Performs both correctly Gaze Best Gaze: (0) Normal Visual Visual: (0) No loss Facial Palsy Facial Palsy: (1) Minor paralysis Motor Arms (both separate) Motor Arm (right): (0) No drift Motor Arm (left): (1) Drift Motor Legs (both separate) Motor Leg (right): (0) No drift Motor Leg (left): (1) Drift Limb Ataxia Limb Ataxia: (0) Absent Sensory Sensory: (0) Normal Best Language Best Language: (0) No aphasia Dysarthria Dysarthria: (0) Normal Extinction and Inattention (formally neg Extinction and inattention: (0) No abnormality Total Score/Results Total Score/Result: 3 Results Vitals Vitals: Vital Signs - 24 hr 06/07/24 11:00 06/07/24 12:08 06/07/24 12:14 Temperature 36.3 C L Temperature Source Temporal Artery Scan Pulse Rate 74 63 59 L Respiratory Rate 17 16 19 Blood Pressure 125/68 171/89 H 158/71 H O2 Saturation 96 99 95 O2 Source Room air Room air Room air Pain Intensity 0 0 0 06/07/24 12:30 06/07/24 13:00 06/07/24 13:30 Temperature Temperature Source Pulse Rate 69 73 64 Respiratory Rate 17 18 19 Blood Pressure 170/77 H 160/73 H 156/79 H O2 Saturation 95 97 98 O2 Source Room air Room air Room air Pain Intensity 0 0 06/07/24 14:00 06/07/24 14:30 06/07/24 15:00 Temperature Temperature Source Pulse Rate 59 L 63 67 Respiratory Rate 11 L 14 17 Blood Pressure 150/80 H 155/85 H 157/78 H O2 Saturation 96 97 96 O2 Source Room air Room air Room air Pain Intensity 0 0 0 06/07/24 15:30 Temperature Temperature Source Pulse Rate 70 Respiratory Rate 18 Blood Pressure O2 Saturation 95 O2 Source Room air Pain Intensity 0 Oxygen O2 Source Room air Labs Labs: Laboratory Tests 06/07/24 06/07/24 11:00 11:03 WBC 8.1 RBC 4.52 L Hgb 13.4 L Hct 39.4 L MCV 87.2 MCH 29.6 MCHC 34.0 RDW 11.9 L Plt Count 256 MPV 8.6 Neut # (Auto) 5.5 Lymph # (Auto) 1.8 [place] # (Auto) 0.7 Eos # (Auto) 0.1 Baso # (Auto) 0.1 Absolute Nucleated RBC 0.00 Nucleated RBC % 0.0 PT 13.0 H INR 1.2 APTT 28.3 Sodium 131 L Potassium 3.7 Chloride 95 L Carbon Dioxide 30 Anion Gap 6.0 BUN 22 H Creatinine 1.0 Estimated GFR (MDRD) 71 L Glucose 125 H POC Whole Bld Glucose 135 Calcium 10.7 H Total Bilirubin 0.7 AST 20 ALT 19 Alkaline Phosphatase 68 Total Protein 6.9 Albumin 4.2 Globulin 2.7 Albumin/Globulin Ratio 1.6 Rads (name of study) head CT: Relevant Findings:: Prelim report reviewed and Discussed with rads (no acute findings) PD Medical Decision Making ED course Complexity details: reviewed results, re-evaluated patient (he is talking well, seems to have good arm/leg strength. Faint of left corner mouth droop. He says he does not feel completely full strength and has some fumbling to movement perceptible to himself.), considered differential (mainly TIA vs CVA, with CT scan ruling out ICH/bleed, mass effect such as tumor. Conisder MRI that is not available today, but can get tomorrow.), d/w patient, d/w family and d/w dairy feed sales consultant (hospitalist, Dr Venegas, who agrees to OBS for further eval and testing. ) ED course: The patient states he felt okay when he woke up this morning. He was with his at the table eating and the noticed that he suddenly had some slurring of speech and mumbling type characteristic. He also noticed weakness of the left arm and leg. His noticed a facial droop. The patient stated he has not had any symptoms like this before. No history of stroke or TIA. The patient denies any recent illness, fever, head injury, change in medicines etc. The patient came here promptly by EMS. The medics noted him to be able to talk in some conversation and have some movement of the left arm and leg though still weaker on route. On arrival here the patient was having reasonable movement of the left arm and leg with a slight bit of weakness and drift. Still some left facial drooping noted. His conversation was clear. He was promptly sent over to the CT scanner for head CT scan and angio of the head and neck. The results were called by radiology promptly. No acute abnormalities were found. I did talk with telestroke radiologist neurologist who said given the improvement of the patient's symptoms to such a degree, he would not advocate any interventions such as tenecteplase and there is no large vessel occlusion so no treatment there. Suggested dual antiplatelet therapy with normal workup for TIA versus CVA. The patient's basic labs did not show any notable abnormality. Reevaluation of the patient after CT showed his symptoms to be mainly resolved with just a faint weakness of the left side of the face. He denied headache. He was well conversant. I did talk with the hospitalist, Dr. Venegas, who accepted the patient in observation for further evaluation. Discharge Plan Discharge Patient Disposition: ED Place in Observation Condition: Stable Clinical Impression: Acute left-sided weakness, Aphasia Interventions: ED Admission Assessment Last Done: 06/07/24 18:04
[2024-06-07 11:14] LABS: BASOPHILS # (AUTO) 0.1 10^3/uL (0.0-0.1); BASOPHILS % (AUTO) 0.7 %; EOSINOPHILS # (AUTO) 0.1 10^3/uL (0.0-0.7); EOSINOPHILS % (AUTO) 0.9 %; HCT - HEMATOCRIT 39.4 % (42.0-52.0); HGB - HEMOGLOBIN 13.4 g/dL (14.0-18.0); LYMPHOCYTES # (AUTO) 1.8 10^3/uL (1.5-3.5); LYMPHOCYTES % (AUTO) 21.7 %; MEAN CORPUSCULAR HEMOGLOBIN 29.6 pg (27.0-31.0); MEAN CORPUSCULAR VOLUME 87.2 fL (80.0-94.0); MEAN PLATELET VOLUME 8.6 fL (7.4-11.4); MONOCYTES # (AUTO) 0.7 10^3/uL (0.0-1.0); MONOCYTES % (AUTO) 8.5 %; NEUTROPHILS # (AUTO) 5.5 10^3/uL (1.5-6.6); NEUTROPHILS % (AUTO) 67.8 %; PLT - PLATELET COUNT 256 10^3/uL (130-450); RED BLOOD COUNT 4.52 10^6/uL (4.70-6.10); RED CELL DISTRIBUTION WIDTH 11.9 % (12.0-15.0); WHITE BLOOD COUNT 8.1 x10^3/uL (4.8-10.8)
[2024-06-07 11:20] LABS: PARTIAL THROMBOPLASTIN TIME 28.3 secs (24.9-33.3)
[2024-06-07 11:24] LABS: INR 1.2 (0.8-1.2)
[2024-06-07 11:25] LABS: ALBUMIN 4.2 g/dL (3.2-5.5); ALBUMIN/GLOBULIN RATIO 1.6 (1.0-2.2); BILIRUBIN,TOTAL 0.7 mg/dL (0.2-1.0); CALCIUM 10.7 mg/dL (8.5-10.3); POTASSIUM 3.7 mmol/L (3.5-4.5); TOTAL PROTEIN 6.9 g/dL (6.4-8.9)
[2024-06-07] MEDS: iohexoL-300 100 ML VIAL IVP ONE (11:32)
--- NOTE | 2024-06-07 11:37 | CT Report ---
PROCEDURE: CT Head W/O Stroke Protocol INDICATIONS: left weakness 10:20 am TECHNIQUE: Noncontrast 4.5 mm thick angled axial sections acquired from the foramen magnum to the vertex, with c oronal reformats. For radiation dose reduction, the following was used: automated exposure control, adjustment of mA and/or kV according to patient size. COMPARISON: 05/12/2024. Correlation is made with the accompanying imaging. Correlation is also made w ith MRI, 08/08/2023. FINDINGS: Image quality: Excellent. CSF spaces: Basal cisterns are patent. Corrected cyst can be seen involving the anterior aspects of the middle cranial fossa on each side as well as the posterior aspect of the posterior fossa. Ventric les are normal in size and shape. Brain: No midline shift. No intracranial masses or hemorrhage. Conley-white matter interface is norm al. Skull and face: Calvarium and visualized facial bones are intact, without suspicious lesions. Sinuses: Visualized sinuses and mastoids are clear. IMPRESSION: No intracranial hemorrhage is seen. No significant intracranial abnormality is seen. Additional findings: Stable arachnoid cysts Note: Case discussed by telephone with Dr. Miller at 11:34 AM [place] time on 06/07/2024. This study fulfills neurological imaging criteria for inclusion or exclusion of acute stroke therapie s based on available published neurological imaging guidelines. Reviewed by: Davian Suárez MD on 06/07/2024 10:35 AM [place] Approved by: Davian Suárez MD on 06/07/2024 10:35 AM [place] Station ID: [id number]
[2024-06-07] MEDS ORDERED: iohexoL-300 100 ML VIAL ONE (11:48)
--- NOTE | 2024-06-07 11:52 | CT Report ---
PROCEDURE: CT Angio Head/Neck INDICATIONS: left sided weakness 10:20 am TECHNIQUE: After the administration of intravenous contrast, 1 mm thick sections acquired from the aortic arch t hrough the [place]. 3-dimensional jrlhyle-cprkxrzns-gfvgomfubt (MIP) and/or volume renderin g reformats were acquired of the central intracranial vasculature and neck separately. For radiation dose reduction, the following was used: automated exposure control, adjustment of mA and/or kV acco rding to patient size. CONTRAST: omni 300, 80 cc COMPARISON: Correlation is made with the accompanying imaging. FINDINGS: Image quality: Metallic streak artifact is seen, which is reduced by the metal suppression algorithm. HEAD CT: CSF Spaces: Basal cisterns are patent. Arachnoid cysts are again seen. Ventricles are normal in size and shape. Brain: No significant abnormality is seen for scanning technique. Skull and face: Calvarium and visualized facial bones appear intact, without suspicious lesions. Sinuses: Visualized sinuses and mastoids are clear. HEAD CT ANGIOGRAPHY: Anterior circulation: Intracranial internal carotid arteries are normal in size and flow. The flow within the paired anterior cerebral arteries is normal and symmetric. The flow within the middle cer ebral arteries is normal and symmetric. The anterior communicating artery is seen. No aneurysms are seen. Posterior circulation: Visualized portions of the vertebral arteries demonstrate normal caliber, and join to form a normal appearing basilar artery. Flow within the posterior cerebral arteries is norm al and symmetric. No aneurysms are seen. NECK CT ANGIOGRAPHY: Carotid system: The great vessels demonstrate a conventional anatomy as they arise from the aortic a rch. The origins of the common carotid arteries appear patent. The common carotid arteries demonstr ate normal caliber and courses. The bifurcation regions are both widely patent. The internal caroti d arteries demonstrate normal calibers and courses. Posterior circulation: The origins of the vertebral arteries both appear widely patent. The more correia perior extracranial portions of both vertebral arteries also demonstrate normal courses and calibers. The left vertebral artery is dominant to the right. Soft tissues: Visualized neck soft tissues demonstrate no suspicious abnormalities. Bones: No suspicious bony lesions. Visualized cervical spine appears normally aligned. Moderate ce rvical spine degenerative change is seen. IMPRESSION: No significant intracranial arterial abnormality is seen. No significant abnormality is seen within the arteries of the neck. Note: Case discussed by telephone with Dr. Miller 11:34 AM [place] time on 06/07/2024. The estimate of stenosis included in the report of the imaging study was calculated using the NASCET method Reviewed by: Davian Suárez MD on 06/07/2024 10:51 AM [facility] Approved by: Davian Suárez MD on 06/07/2024 10:51 AM BA[facility]IST[place] Station ID: [id number]
[2024-06-07] MEDS: ASPIRIN 325 MG TABLET PO STA (12:27)
[2024-06-07] MEDS: CLOPIDOGREL 75 MG TABLET PO STA (12:27)
--- NOTE | 2024-06-07 13:41 | HISTORY & PHYSICAL EXAMINATION ---
Chief Complaint Chief Complaint Chief Complaint: Slurred speech, left hemiplegia History of Present Illness Admitted From Admitted From:: ED History Obtained From History obtained from: Patient, chart review Exam Limitations: Patient is poor historian at this time, No family available for interview History of Present Illness HPI Comment/Other: 84-year-old male past medical history significant for hypertension, former smoker quit 1971 presented to the ER with left-sided hemiplegia and slurred speech. The symptoms resolved prior to being seen by teleneurology, so tPA was held. CT, CTA head/neck showed no acute abnormality. Per teleneurology, likely TIA. Consult was requested for observation Meds/Allgy Home Medications Ambulatory Orders Medication Instructions Recorded Confirmed tamsulosin 0.4 mg capsule 1 cap PO DAILY 05/30/23 06/07/24 atorvastatin 40 mg tablet 40 mg PO DAILY 06/07/24 06/07/24 escitalopram oxalate 5 mg tablet 5 mg PO DAILY 06/07/24 06/07/24 gabapentin 300 mg capsule 300 mg PO BID 06/07/24 06/07/24 hydrochlorothiazide 25 mg tablet 25 mg PO DAILY 06/07/24 06/07/24 losartan 100 mg tablet 100 mg PO DAILY 06/07/24 06/07/24 sildenafil 100 mg tablet 100 mg PO Q24H PRN erectile 06/07/24 06/07/24 dysfunction Allergies Allergies Allergy/AdvReac Type Severity Reaction Status Date / Time No Known Drug Allergies Allergy Verified 06/07/24 11:41 PFSH Social History Social History Smoking Status: Never smoker If you are a former smoker, when did you quit? (Date/Year): 1971 Do you dip or chew tobacco?: No Living arrangement: At home Relationship: Do you feel safe in your home environment?: Yes Suffered physical, verbal, emotional, or financial abuse?: No History of Abuse: No POLST Patient has POLST: No Review of Systems ROS limited due to patient being poor historian and no family available for interview. Majority of ROS obtained from chart review Constitutional Denies: Fever or Chills Cardiovascular Denies: Irregular heart rate, chest pain or shortness of breath with exertion Respiratory Denies: Shortness of breath, Cough or Wheezing Gastrointestinal Denies: Abdominal pain or Abdominal distention Genitourinary Denies: Painful urination Neurological Reports: Focal weakness (Left-sided weakness resolved prior to my interview) and Slurred speech (Resolved prior to interview) Allergic/Immunologic Denies: Wheezing Exam Constitutional Elderly male in no acute distress HENMT head/scalp atraumatic Eyes PERRL Neck/C-Spine visual inspection normal Chest inspection of chest normal and palpation of chest normal Respiratory breath sounds equal bilaterally Cardiovascular normal heart rate noted and regular rhythm noted Gastrointestinal abdomen normal to inspection and abdomen soft to palpation Genitourinary bladder normal to palpation Extremities normal to inspection Neurology cio II-XII intact, no movement abnormality noted, no focal motor deficit noted and no sensory deficits noted Speech slightly delayed, but clear Skin skin color normal Conclusion/Plan Problem List (1) Acute left-sided weakness: Plan: CT, CTA negative Follow-up CT versus MRI Aspirin/Plavix/atorvastatin Telemetry Neurochecks Holding home antihypertensives Lab Results Lab results reviewed: Yes 06/07/24 11:00 06/07/24 11:00 Diagnostic Imaging Results Diagnostic Imaging Results: positive Final report reviewed Diagnostic Imaging Results Comments: CT head/CTA head and neck negative for acute abnormality Core Measures Anticipated LOS I expect patient to be DC'd or transferred within 96 hours.: Yes DVT/VTE - Prophylaxis VTE/DVT Device ordered at admit?: Yes VTE/DVT Prophylaxis med ordered at admit?: No Stroke - Rehab Assessment Rehab services assessment to be ordered?: No Not Ordered - Medical Reason: Not indicated
[2024-06-07] MEDS ORDERED: SODIUM CHLORIDE FLUSH 0.9% 10 ML SYRINGE IVP PRN (17:01)
[2024-06-07] MEDS: SODIUM CHLORIDE FLUSH 0.9% 10 ML SYRINGE IVP SCH (17:37)
[2024-06-07 17:54] LABS: BILIRUBIN,URINE NEGATIVE (NEGATIVE); GLUCOSE, URINE (UA) NEGATIVE (NEGATIVE); KETONES,URINE (UA) NEGATIVE (NEGATIVE); LEUKOCYTE ESTERASE, URINE NEGATIVE (NEGATIVE); NITRITE,URINE NEGATIVE (NEGATIVE); OCCULT BLOOD,URINE TRACE-INTA (NEGATIVE); PROTEIN,URINE NEGATIVE (NEGATIVE); UROBILINOGEN,URINE 0.2 (NORMAL) E.U./dL (NORMAL)
[2024-06-07 17:55] LABS: CLARITY,URINE CLEAR (CLEAR)
[2024-06-07] MEDS: GABAPENTIN 300 MG CAPSULE PO SCH (20:36)
[2024-06-08 05:26] LABS: BASOPHILS # (AUTO) 0.1 10^3/uL (0.0-0.1); BASOPHILS % (AUTO) 0.6 %; EOSINOPHILS # (AUTO) 0.2 10^3/uL (0.0-0.7); EOSINOPHILS % (AUTO) 1.9 %; HCT - HEMATOCRIT 38.3 % (42.0-52.0); HGB - HEMOGLOBIN 13.3 g/dL (14.0-18.0); LYMPHOCYTES # (AUTO) 1.5 10^3/uL (1.5-3.5); LYMPHOCYTES % (AUTO) 17.3 %; MEAN CORPUSCULAR HEMOGLOBIN 29.9 pg (27.0-31.0); MEAN CORPUSCULAR HGB CONC 34.7 g/dL (32.0-36.0); MEAN CORPUSCULAR VOLUME 86.1 fL (80.0-94.0); MEAN PLATELET VOLUME 8.6 fL (7.4-11.4); MONOCYTES # (AUTO) 0.8 10^3/uL (0.0-1.0); MONOCYTES % (AUTO) 8.9 %; NEUTROPHILS % (AUTO) 70.9 %; PLT - PLATELET COUNT 229 10^3/uL (130-450); RED BLOOD COUNT 4.45 10^6/uL (4.70-6.10); RED CELL DISTRIBUTION WIDTH 12.2 % (12.0-15.0); WHITE BLOOD COUNT 8.4 x10^3/uL (4.8-10.8)
[2024-06-08 05:42] LABS: ALBUMIN/GLOBULIN RATIO 1.6 (1.0-2.2); BILIRUBIN,TOTAL 0.7 mg/dL (0.2-1.0); CALCIUM 10.5 mg/dL (8.5-10.3); CREATININE 0.9 mg/dL (0.6-1.3); POTASSIUM 3.6 mmol/L (3.5-4.5); TOTAL PROTEIN 6.5 g/dL (6.4-8.9)
[2024-06-08] MEDS: ESCITALOPRAM 10 MG TABLET PO SCH (08:25)
[2024-06-08] MEDS: TAMSULOSIN 0.4 MG CAPSULE PO SCH (08:25)
[2024-06-08] MEDS: ASPIRIN EC 81 MG TABLET PO SCH (08:25)
[2024-06-08] MEDS: ATORVASTATIN 40 MG TABLET PO SCH (08:25)
[2024-06-08] MEDS: CLOPIDOGREL 75 MG TABLET PO SCH (08:25)
--- NOTE | 2024-06-08 11:20 | PHARMACY PROGRESS NOTE ---
Best Possible Medication History Admit Date and Time: 06/07/24 1551 Processed by: Pharmacy Medications reviewed in ED?: Yes Medication History completed: Yes Patient Interview: Completed Secondary Source(s): Pharmacy records and Insurance records [facility] Statement: As the person ultimately responsible for medication therapy, providers are able to order a medication from an existing home medication list in [facility] via the "Reconcile Routine" prior to Confirmation of that medication by customer support specialist. Such practice is discouraged except when the physician, in their clinical judgment, deems that a medical need exists for a medication without regard to previous use.
--- NOTE | 2024-06-08 11:45 | MRI Report ---
PROCEDURE: MRI Brain WO INDICATIONS: TIA TECHNIQUE: Noncontrast axial T1 spin echo, axial T2 fast spin echo, sagittal and axial FLAIR, coronal T2 fast sp in echo, axial gradient echo, axial diffusion and ADC through the brain. COMPARISON: CT head from 06/07/2024. FINDINGS: Image quality: Excellent. CSF Spaces: Basal cisterns are patent. No extra-axial fluid collections. Ventricles are normal in size and shape. Brain: No intracranial masses or hemorrhage. Conley/white matter interface is normal. Brainstem appe ars normal. Diffusion-weighted images demonstrate numerous tiny bilateral scattered foci of restrict ed diffusion in both the anterior distribution and posterior distribution. Findings include tiny foci in the right cerebellum on image 31 of diffusion sequence 12, 5 different foci of tiny restricted wa ter diffusion in the cerebellum and posterior temporal occipital regions on axial image 33 of series 12, a focus in the left occipital conley-white junction region on image 36/12, bilateral frontal deep w anupam matter/conley-white junction lesions on image 43/12, as well as numerous other lesions, including a right frontal cortical lesion on image 45/12. This is consistent with an embolic event, likely seco ndary to a cardiogenic source. No chronic ischemic insults. There is age-related volume loss and mode rate periventricular white matter change consistent with small vessel ischemic change. Normal intrava scular flow voids are present. Skull and face: Calvarium has normal marrow signal. Orbits appear normal. Sinuses: Sinuses and mastoids are clear. IMPRESSION: 1. [place] of numerous tiny emboli, likely from a cardiogenic source, with numerous tiny focal area s of acute infarct. Reviewed by: Orlando Echevarria MD on 06/08/2024 11:44 AM PDT Approved by: Orlando Echevarria MD on 06/08/2024 11:44 AM PDT Station ID: [id number]
--- NOTE | 2024-06-08 17:20 | PROVIDER PROGRESS NOTE ---
Subjective Prog Note Date Prog Note Date: 06/08/24 Subjective Pt reports feeling: Improved Subjective: States he feels fine other than some slurred speech Current Medications Current Medications Current Medications: Current Medications Generic Name Dose Route Start Last Admin Trade Name Sumaya PRN Reason Stop Dose Admin Aspirin 81 mg 06/08/24 09:00 06/08/24 08:25 Aspirin Ec 81 Mg Tablet PO 81 mg DAILY CLARK Administration Atorvastatin Calcium 40 mg 06/08/24 09:00 06/08/24 08:25 Atorvastatin 40 Mg Tablet PO 40 mg DAILY CLARK Administration Clopidogrel Bisulfate 75 mg 06/08/24 09:00 06/08/24 08:25 Clopidogrel 75 Mg Tablet PO 75 mg DAILY CLARK Administration Escitalopram Oxalate 5 mg 06/08/24 09:00 06/08/24 08:25 Escitalopram 10 Mg Tablet PO 5 mg DAILY CLARK Administration Gabapentin 300 mg 06/07/24 21:00 06/08/24 08:25 Gabapentin 300 Mg Capsule PO 300 mg BID CLARK Administration Sodium Chloride 10 ml 06/07/24 17:01 Sodium Chloride Flush 0.9% 10 Ml Syringe IVP PRN PRN NEEDED PER PROVIDER ORDERS Sodium Chloride 10 ml 06/07/24 17:01 06/08/24 08:25 Sodium Chloride Flush 0.9% 10 Ml Syringe IVP 10 ml 0100,0900,1700 CLARK Administration Tamsulosin HCl 0.4 mg 06/08/24 09:00 06/08/24 08:25 Tamsulosin 0.4 Mg Capsule PO 0.4 mg DAILY CLARK Administration Objective Vital Signs/Intake & Output Reviewed Vital Signs: Yes Vital Signs: Vital Signs x48h Temp Pulse Resp BP Pulse Ox 06/08/24 16:02 36.6 C 55 L 22 140/76 H 96 06/08/24 13:00 36.6 C 59 L 20 145/81 H 95 Intake & Output: Intake & Output 06/06/24 06/07/24 06/08/24 06/09/24 05:59 05:59 05:59 05:59 Intake Total 386 / 386 840 / 840 Output Total 1025 / 1025 250 / 250 Balance -639 / -639 590 / 590 Weight (kg) 94 kg Objective General Appearance: positive No acute distress Eyes Bilateral: positive Normal inspection Respiratory: positive Chest non-tender and No respiratory distress Cardiovascular: positive Regular rate & rhythm and No murmur Abdomen: positive Non-tender Rectal: positive Non-tender Skin: positive Color nml Extremities: positive Non-tender Neurologic/Psychiatric: positive Oriented x3, CN's nml (2-12) and Slurred/abnml speech Lab Results 06/08/24 05:11 06/08/24 05:11 Other Labs: Lab Results x24hrs 06/08/24 06/07/24 Range/Units 05:11 17:40 WBC 8.4 (4.8-10.8) x10^3/uL RBC 4.45 L (4.70-6.10) 10^6/uL Hgb 13.3 L (14.0-18.0) g/dL Hct 38.3 L (42.0-52.0) % MCV 86.1 (80.0-94.0) fL MCH 29.9 (27.0-31.0) pg MCHC 34.7 (32.0-36.0) g/dL RDW 12.2 (12.0-15.0) % Plt Count 229 (130-450) 10^3/uL MPV 8.6 (7.4-11.4) fL Neut # (Auto) 6.0 (1.5-6.6) 10^3/uL Lymph # (Auto) 1.5 (1.5-3.5) 10^3/uL [place] # (Auto) 0.8 (0.0-1.0) 10^3/uL Eos # (Auto) 0.2 (0.0-0.7) 10^3/uL Baso # (Auto) 0.1 (0.0-0.1) 10^3/uL Absolute Nucleated RBC 0.00 x10^3/uL Nucleated RBC % 0.0 /100WBC Sodium 131 L (135-145) mmol/L Potassium 3.6 (3.5-4.5) mmol/L Chloride 96 L (101-111) mmol/L Carbon Dioxide 28 (21-32) mmol/L Anion Gap 7.0 (6-13) BUN 21 H (6-20) mg/dL Creatinine 0.9 (0.6-1.3) mg/dL Estimated GFR (MDRD) 80 L (>89) Glucose 104 (74-104) mg/dL Calcium 10.5 H (8.5-10.3) mg/dL Total Bilirubin 0.7 (0.2-1.0) mg/dL AST 25 (10-42) IU/L ALT 18 (10-60) IU/L Alkaline Phosphatase 63 (42-121) IU/L Total Protein 6.5 (6.4-8.9) g/dL Albumin 4.0 (3.2-5.5) g/dL Globulin 2.5 (2.1-4.2) g/dL Albumin/Globulin Ratio 1.6 (1.0-2.2) Urine Color YELLOW Urine Clarity CLEAR (CLEAR) Urine pH 7.0 (5.0-7.5) PH Ur Specific [place] 1.010 (1.002-1.030) Urine Protein NEGATIVE (NEGATIVE) mg/dL Urine Glucose (UA) NEGATIVE (NEGATIVE) mg/dL Urine Ketones NEGATIVE (NEGATIVE) mg/dL Urine Occult Blood TRACE-INTA (NEGATIVE) Urine Nitrite NEGATIVE (NEGATIVE) Urine Bilirubin NEGATIVE (NEGATIVE) Urine Urobilinogen 0.2 (NORMAL) (NORMAL) E.U./dL Ur Leukocyte Esterase NEGATIVE (NEGATIVE) Ur Microscopic Review NOT INDICATED Urine Culture Comments NOT INDICATED Diagnostic Imaging Diagnostic Imaging Results: positive Final report reviewed Diagnostic Imaging Comments: MRI brain shower of numerous tiny emboli, likely from cardiogenic source, with numerous tiny focal areas of acute infarct Assessment/Plan Problem List (1) CVA (cerebral vascular accident): Impression: Patient was initially placed in observation for what was presumed to be a TIA given resolution of symptoms MRI performed today shows shower of tiny infarcts likely from cardiogenic source EKG on admit was sinus rhythm, will order telemetry Ordered echo Anticipate transfer for GUME Aspirin 81 mg p.o. daily Plavix 75 mg p.o. daily Lipitor 40 mg p.o. daily Would probably benefit from speech therapy eval, but that is unavailable at this time PT OT Consult Qualifiers: CVA mechanism: embolism Laterality of affected vessel: bilateral (2) Hypercalcemia: Impression: He has had elevated calcium levels across multiple draws/visits Check PTH in a.m. (3) Hypertension: Impression: Borderline hypertension for the duration of his visit Will be cautious in managing this given his recent stroke Will consider adding LUI inhibitor after echo, as he has had multiple infarcts and we do not know if he will have more
[2024-06-09 05:46] LABS: BASOPHILS # (AUTO) 0.1 10^3/uL (0.0-0.1); BASOPHILS % (AUTO) 0.7 %; EOSINOPHILS # (AUTO) 0.3 10^3/uL (0.0-0.7); HGB - HEMOGLOBIN 12.9 g/dL (14.0-18.0); LYMPHOCYTES # (AUTO) 1.4 10^3/uL (1.5-3.5); LYMPHOCYTES % (AUTO) 14.7 %; MEAN CORPUSCULAR HEMOGLOBIN 29.4 pg (27.0-31.0); MEAN CORPUSCULAR HGB CONC 33.9 g/dL (32.0-36.0); MEAN CORPUSCULAR VOLUME 86.6 fL (80.0-94.0); MEAN PLATELET VOLUME 8.9 fL (7.4-11.4); MONOCYTES # (AUTO) 0.8 10^3/uL (0.0-1.0); MONOCYTES % (AUTO) 8.5 %; NEUTROPHILS # (AUTO) 7.1 10^3/uL (1.5-6.6); NEUTROPHILS % (AUTO) 72.8 %; PLT - PLATELET COUNT 219 10^3/uL (130-450); RED BLOOD COUNT 4.39 10^6/uL (4.70-6.10); RED CELL DISTRIBUTION WIDTH 12.1 % (12.0-15.0); WHITE BLOOD COUNT 9.8 x10^3/uL (4.8-10.8)
[2024-06-09 06:05] LABS: CREATININE 0.8 mg/dL (0.6-1.3); POTASSIUM 3.4 mmol/L (3.5-4.5)
--- NOTE | 2024-06-09 16:10 | Discharge Summary ---
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 While in the ER, his lateral deficits resolved, so tPA was deferred at that time. He was held in observation for TIA workup with his only residual symptom being slightly slurred speech/delayed responses.. Of note, he is established with [facility] neurology, and has an appointment there on 07/06/[address] Weldon CONSULTS | PROCEDURES Consultations: Teleneurology was consulted by ER provider HOSPITAL COURSE Hospital Course: Patient was held in observation for TIA workup. MRI brain showed a shower of tiny embolic strokes. Echo was performed which did not show any acute abnormality. The decision was made to transfer patient to outside hospital, where GUME could be performed and where he could be seen by neurology/cardiology ALLERGIES Allergies Allergy/AdvReac Type Severity Reaction Status Date / Time No Known Drug Allergies Allergy Verified 06/07/24 11:41 MEDICATIONS Ambulatory Orders Medication Instructions Recorded Confirmed tamsulosin 0.4 mg capsule 1 cap PO DAILY 05/30/23 06/07/24 atorvastatin 40 mg tablet 40 mg PO DAILY 06/07/24 06/07/24 escitalopram oxalate 5 mg tablet 5 mg PO DAILY 06/07/24 06/07/24 gabapentin 300 mg capsule 300 mg PO BID 06/07/24 06/07/24 hydrochlorothiazide 25 mg tablet 25 mg PO DAILY 06/07/24 06/07/24 losartan 100 mg tablet 100 mg PO DAILY 06/07/24 06/07/24 sildenafil 100 mg tablet 100 mg PO Q24H PRN erectile 06/07/24 06/07/24 dysfunction PHYSICAL EXAM AT DISCHARGE General Appearance: positive No acute distress Respiratory: positive Chest non-tender Cardiovascular: positive Regular rate & rhythm Peripheral Pulses: positive 2+ Abdomen: positive Non-tender Skin: positive Color nml Extremities: positive Non-tender Neurologic/Psychiatric: positive Oriented x3 and Slurred/abnml speech LABS 06/09/24 05:35 06/09/24 05:35 DIAGNOSTIC IMAGING Diagnostic Imaging Results: Final report reviewed Diagnostic Imaging Results Comments: MRI brain shower embolic strokes SEPSIS Current Stage of Sepsis: Ruled out TIME SPENT Time Spent in Discharge (Minutes): 35 Discharge Plan Discharge Patient Disposition: 02 Transfer Acute Care Hosp Condition: Stable Prescriptions: No Action tamsulosin 0.4 MG capsule 1 cap PO DAILY Patient Comments: Take 1 capsule by mouth every night atorvastatin 40 mg tablet 40 mg PO DAILY escitalopram oxalate 5 mg tablet 5 mg PO DAILY gabapentin 300 mg capsule 300 mg PO BID hydrochlorothiazide 25 mg tablet 25 mg PO DAILY losartan 100 mg tablet 100 mg PO DAILY sildenafil 100 mg tablet 100 mg PO Q24H PRN (Reason: erectile dysfunction) Print Language: Niuean Stand Alone Forms: PCP List Follow-up Care: Benito Rankin MD [Primary Care Provider] -"
[2024-06-09 16:29] VITALS: O2SAT 93
[2024-06-10] MEDS ORDERED: polyethylene glycoL 3350 17 GM PACKET PO SCH (09:00)
== END 2024-06-09 17:15 | disposition short-term general hospital (02) ==
LOC: MS2 10:57 → ED 10:57 → MS2 14:01
PROVIDERS: ADMIT Nurse Practitioner Acute Care; ATTEND Nurse Practitioner Acute Care
DX: Z87.891 Personal history of nicotine dependence; I10 Essential (primary) hypertension; R47.81 Slurred speech; R29.810 Facial weakness; I63.443 Cerebral infarction due to embolism of bilateral cerebellar arteries; E83.52 Hypercalcemia; G81.94 Hemiplegia, unspecified affecting left nondominant side; R29.703 NIHSS score 3